=== PATIENT | female | born 1985 | race African-American/Black ===

== ENCOUNTER 2016-12-09 16:49 | Inpatient (IN) | payer OTHER ==
[~2016-12-09] VITALS: Ht 180.3 cm; Wt 70.0 kg
[~2016-12-09 16:49] MED LIST: ABILIFY30 MG PO; ADDERALL XR 1010 MG PO; ADDERALL10 MG PO; ADDERALL20 MG PO; ADDERALL30 MG PO; ADVAIR 250/501 DISK IH; ALAGESIC CAPSU1 EACH PO; ALBUTEROL SULF8.5 GM IH; ANAPROX DS550 M1 PO; AUGMENTIN875 MG PO; BACTRIM,SEPT1 TABLET PO; BENADRYL25 MG PO; BENTYL10 MG PO; BUSPAR30 MG PO; CEFTIN500 MG PO; CELEXA40 MG PO; CIPRO500 MG PO; CLEOCIN150 MG PO; CLINDAMYCIN HC300 MG PO; CLONAZEPAM1 MG PO; CLONIDINE HCL0.1 MG PO; COGENTIN1 MG PO; DEBROX15 ML BOTH EARS; DELTASONE20 M1 PO; DEPAKOTE125 MG PO; DEPAKOTE500 MG PO; DOXEPIN HCL50 MG PO; DOXEPIN HCL75 MG PO; ELAVIL25 MG PO; FLAGYL500 MG PO; FLEXERIL10 MG PO; FLONASE16 G1 BOTH NARES; IBUPROFEN600 MG PO; IBUPROFEN800 MG PO; IMITREX50 MG PO; INDERAL20 MG PO; INDERAL40 MG PO; Imitrex PO; KLONOPIN0.5 M1 PO; KLONOPIN1 MG PO; KLONOPIN2 MG PO; LAMICTAL200 MG PO; LASIX20 MG PO; LASIX40 MG PO; LATUDA80 MG PO; LEVOTHYROXINE50 MCG PO; LEVOTHYROXINE75 MCG PO; LITHIUM CARBON300 M1 PO; LITHIUM CARBON300 MG PO; LITHOBID300 MG PO; LORATADINE10 M2 PO; Levothroid,Synthroid PO; METADATE CD50 MG PO; METOCLOPRAMIDE H5 MG PO; MINIPRES1 MG PO; MINIPRESS2 MG PO; MIRALAX255 GM PO; MOBIC7.5 MG PO; MUCUS ER600 MG PO; NABUMETONE750 MG PO; NAPROSYN250 MG PO; NEURONTIN100 MG PO; NEURONTIN600 MG PO; OMEPRAZOLE20 M3 PO; OMEPRAZOLE40 M1 PO; PARLODEL2.5 MG PO; PERCOCET 5/31 TABLET PO; POTASSIUM GLUCO2 MEQ PO; PRENATAL TABLE1 EAC3 PO; PRILOSEC20 MG PO; PRILOSEC40 MG; RANITIDINE HCL300 M1 PO; REGLAN10 M1 PO; REGLAN10 MG PO; REGLAN5 MG PO; REMERON30 M2 PO; SEROQUEL XR400 MG PO; SEROQUEL200 MG PO; SINEQUAN75 MG PO; SINGULAIR10 MG PO; SYNTHROID50 MCG PO; Saphris SL; TESSALON PERLE100 MG PO; TOPAMAX25 MG PO; TRAMADOL HCL50 MG PO; TRILEPTAL150 MG PO; TYLENOL WITH C1 EACH PO; TYLOX 5-500 CA1 EACH PO; ULTRAM50 MG PO; VENTOLIN HFA18 GM IH; VICODIN 5-3001 EACH PO; WELLBUTRIN SR150 MG PO; ZANTAC150 MG PO; ZOFRAN ODT4 MG PO; ZOFRAN4 MG PO; ZOLOFT50 M1 PO; ZYPREXA5 MG PO; Zantac PO; [UNRECOGNIZED DRUG - OTHER] PO; [UNRECOGNIZED DRUG - OTHER] PO; advair
[2016-12-09 18:53] LABS: AMPHETAMINE NEGATIVE (500 ng/mL); BARBITURATES NEGATIVE (200 ng/mL); BENZODIAZEPINES NEGATIVE (150 ng/mL); COCAINE PRESUMPTIVE POSITIVE (150 ng/mL); INTERNAL CONTROLS VALID? YES; METHADONE NEGATIVE (200 ng/mL); METHAMPHETAMINE NEGATIVE (500 ng/mL); OPIATES (MORPHINE) NEGATIVE (100 ng/mL); OXYCODONE NEGATIVE (100 ng/mL); PHENCYCLIDINE NEGATIVE (25 ng/mL); PROPOXYPHENE NEGATIVE (300 ng/mL); THC CANNABINOIDS NEGATIVE (50 ng/mL); TRICYCLIC ANTIDEPRESSANTS NEGATIVE (300 ng/mL)
[2016-12-09 18:54] LABS: ADD MEDTOX COMMENT Y
[2016-12-09 19:05] LABS: HEMATOCRIT 39.4 % (36.0-46.0); MCH 31.6 PG (29.0-34.0); MCHC 33.8 G/DL (30.0-36.0); MCV 93.6 FL (83-99); RBC DIS.WIDTH-CV 12.1 % (11.8-14.6); RBC DIS.WIDTH-SD 41.9 % (39-53); RED BLOOD COUNT 4.21 M/uL (3.80-5.20)
[2016-12-09 19:25] LABS: CHLORIDE 108 mEq/L (99-109); SODIUM 137 mEq/L (136-147)
[2016-12-09 19:27] LABS: GLUCOSE 113 mg/dL (70-99)
[2016-12-09 19:28] LABS: ANION GAP 8 MEQ/L (2-14)
[2016-12-09 19:30] LABS: SERUM ETHYL ALCOHOL < 10 mg/dL
[2016-12-09 19:31] LABS: GFR ESTIMATE (CALCULATED) > 59 mL/min/; UREA NITROGEN (BUN) 7 mg/dL (9-23)
[2016-12-09 20:02] LABS: MEAN PLAT.VOLUME 12.8 uM^3 (9.5-12.4); PLATELET COUNT 186 K/uL (156-360)
[2016-12-09] MEDS ORDERED: ADDERALL20 MG PO (20:37)
[2016-12-09] MEDS ORDERED: FLONASE16 G1 BOTH NARES (20:37)
[2016-12-09] MEDS ORDERED: CLINDAMYCIN HC300 MG PO (20:38)
[2016-12-09] MEDS ORDERED: TRAZODONE HCL150 MG PO (20:38)
[2016-12-09] MEDS ORDERED: JUNEL FE 1.5-31 EACH PO (20:38)
[2016-12-10 00:08] VITALS: BP 139/89
[2016-12-10 08:21] VITALS: BP 112/71
[2016-12-10 15:47] VITALS: BP 133/66
[2016-12-11 07:51] VITALS: BP 110/54
[2016-12-11 15:37] VITALS: BP 130/67
[2016-12-12 07:57] VITALS: BP 113/57
[2016-12-12] MEDS ORDERED: DESYREL 150 MG150 MG PO (11:53)
[2016-12-12] MEDS ORDERED: CLONAZEPAM1 MG PO (11:53)
[2016-12-12] MEDS ORDERED: BUSPAR15 MG PO (11:53)
[2016-12-12] MEDS ORDERED: DIVALPROEX SOD500 MG PO (11:53)
[2016-12-12] MEDS ORDERED: DULOXETINE HCL30 MG PO (11:53)
== END 2016-12-12 12:58 | disposition home or self-care (01) | DRG 885 ==
LOC: EME 16:49 → 1WEST 20:02 → EDOF 20:02 → 1WEST 23:57
PROVIDERS: Emergency Medicine
DX: F33.2 Major depressive disorder, recurrent severe without psychotic features (principal); F14.10 Cocaine abuse, uncomplicated; R45.851 Suicidal ideations; G89.29 Other chronic pain; M79.7 Fibromyalgia; J44.9 Chronic obstructive pulmonary disease, unspecified; J45.909 Unspecified asthma, uncomplicated; E03.9 Hypothyroidism, unspecified; M19.90 Unspecified osteoarthritis, unspecified site; K21.9 Gastro-esophageal reflux disease without esophagitis; F17.200 Nicotine dependence, unspecified, uncomplicated; Z86.73 Personal history of transient ischemic attack (TIA), and cerebral infarction without residual deficits
CPT/HCPCS: 80048; 80164; 84999; 85027; 90839; 97165 GO; 99202; 99281; 99285; G0480

== ENCOUNTER 2017-09-21 01:28 | Emergency (ER) | payer OTHER ==
[~2017-09-21] VITALS: Ht 180.3 cm; Wt 64.1 kg
[~2017-09-21 01:28] MED LIST changes: +BUSPAR15 MG PO; +DEPAKOTE ER500 MG PO; +DESYREL 150 MG150 MG PO; +DIVALPROEX SOD500 MG PO; +DULOXETINE HCL30 MG PO; +JUNEL FE 1.5-31 EACH PO; +LYRICA75 MG PO; +TRAZODONE HCL150 MG PO; +TRAZODONE HCL50 MG PO
[2017-09-21 02:30] LABS: HEMATOCRIT 39.4 % (36.0-46.0); MCH 32.8 PG (29.0-34.0); MCHC 35.3 G/DL (30.0-36.0); MCV 92.9 FL (83-99); RBC DIS.WIDTH-CV 12.4 % (11.8-14.6); RBC DIS.WIDTH-SD 42.3 % (39-53); RED BLOOD COUNT 4.24 M/uL (3.80-5.20); WHITE BLOOD COUNT 5.6 K/uL (4.1-10.2)
[2017-09-21 02:39] LABS: CHLORIDE 108 mEq/L (99-109); POTASSIUM 4.1 mEq/L (3.7-5.4); SODIUM 138 mEq/L (136-147)
[2017-09-21 02:40] LABS: GLUCOSE 97 mg/dL (70-99)
[2017-09-21 02:42] LABS: ANION GAP 9 MEQ/L (2-14)
[2017-09-21 02:44] LABS: GFR ESTIMATE (CALCULATED) > 59 mL/min/
[2017-09-21 02:45] LABS: UREA NITROGEN (BUN) 13 mg/dL (9-23)
[2017-09-21 02:52] LABS: QUANTITATIVE HCG < 4.0 MIU/ML
[2017-09-21 03:08] LABS: MEAN PLAT.VOLUME 11.5 uM^3 (9.5-12.4); PLAT.SUFFICIENCY ADEQUATE; PLATELET COUNT 215 K/uL (156-360)
[2017-09-21] MEDS ORDERED: AUGMENTIN875 MG PO (04:19)
[2017-09-21 04:39] VITALS: BP 133/81
== END 2017-09-21 04:40 | disposition home or self-care (01) ==
LOC: EME 01:28
PROVIDERS: Physician Assistant
DX: H66.91 Otitis media, unspecified, right ear (principal); Z88.8 Allergy status to other drugs, medicaments and biological substances
CPT/HCPCS: 70486; 80048; 84702; 85027; J1885; J2060; J3010

== ENCOUNTER 2017-12-29 06:17 | Day surgery (SDC) | payer OTHER ==
[~2017-12-29] VITALS: Ht 175.3 cm; Wt 71.4 kg
[2017-12-29 06:39] VITALS: BP 149/88
[2017-12-29 14:25] VITALS: BP 126/80
[2017-12-29 20:09] VITALS: BP 139/84
[2017-12-30] VITALS: BP 116/76
[2017-12-30 03:35] VITALS: BP 121/68
[2017-12-30 05:33] LABS: MCH 31.3 PG (29.0-34.0); MCHC 32.8 G/DL (30.0-36.0); MCV 95.5 FL (83-99); PLATELET COUNT 170 K/uL (156-360); RBC DIS.WIDTH-SD 45.6 % (39-53); WHITE BLOOD COUNT 8.5 K/uL (4.1-10.2)
[2017-12-30 05:48] LABS: HEMOGLOBIN 10.5 G/DL (11.9-15.5); RED BLOOD COUNT 3.35 M/uL (3.80-5.20)
[2017-12-30 06:03] LABS: CHLORIDE 105 MEQ/L (99-109); CREATININE 0.8 MG/DL (0.6-1.3); GFR ESTIMATE (CALCULATED) > 59 mL/min/; GLUCOSE 128 mg/dL (70-99); POTASSIUM 3.7 MEQ/L (3.7-5.4); SODIUM 137 MEQ/L (136-147); UREA NITROGEN (BUN) 7 mg/dL (9-23)
[2017-12-30] MEDS ORDERED: PERCOCET 5/31 TABLET PO (07:17)
[2017-12-30 07:50] VITALS: BP 116/77
== END 2017-12-30 09:45 | disposition home or self-care (01) ==
LOC: SDC 06:17 → 2SOUTH 09:45 → 2EAST 09:45 → ENRESERV 10:46 → SDC 11:34 → ENRESERV 11:57 → 2EAST 14:14 → SDC 15:24 → 2EAST 12-30 09:45
PROVIDERS: Obstetrics & Gynecology
DX: N92.0 Excessive and frequent menstruation with regular cycle (principal); N94.6 Dysmenorrhea, unspecified; N80.0 Endometriosis of uterus; D25.1 Intramural leiomyoma of uterus; N73.6 Female pelvic peritoneal adhesions (postinfective); N83.202 Unspecified ovarian cyst, left side; G89.29 Other chronic pain; R10.2 Pelvic and perineal pain; Z98.51 Tubal ligation status; K21.9 Gastro-esophageal reflux disease without esophagitis; E03.9 Hypothyroidism, unspecified; F31.9 Bipolar disorder, unspecified; J44.9 Chronic obstructive pulmonary disease, unspecified; M79.7 Fibromyalgia; G47.00 Insomnia, unspecified; Z87.891 Personal history of nicotine dependence; Z82.49 Family history of ischemic heart disease and other diseases of the circulatory system; Z83.3 Family history of diabetes mellitus; Z88.8 Allergy status to other drugs, medicaments and biological substances
CPT/HCPCS: 80048; 82948; 85027; 87641; 88307; G0378; J0131; J0330; J0690; J1100; J1170; J1885; J2250; J2405; J2710; J2765; J3010; J7120; J7643; S0020